=== PATIENT | female | born 1980 | race Caucasian/White ===

== ENCOUNTER 2016-05-12 08:34 | Emergency (ER) | payer BC ==
[~2016-05-12] VITALS: Ht 162.6 cm; Wt 71.0 kg
[~2016-05-12 08:34] MED LIST: NAPROSYN500 MG PO
[2016-05-12] MEDS ORDERED: PERCOCET 5/31 TABLET PO (11:28)
[2016-05-12] MEDS ORDERED: CLINDAMYCIN HC300 MG PO (11:28)
[2016-05-12 11:44] VITALS: BP 111/68
== END 2016-05-12 11:44 | disposition home or self-care (01) ==
LOC: EME 08:34
DX: L02.213 Cutaneous abscess of chest wall (principal); Z48.01 Encounter for change or removal of surgical wound dressing
CPT/HCPCS: 76604; 99281; 99284

== ENCOUNTER 2016-05-14 13:34 | Emergency (ER) | payer BC ==
[~2016-05-14] VITALS: Ht 162.6 cm; Wt 72.6 kg
[~2016-05-14 13:34] MED LIST changes: +CLINDAMYCIN HC300 MG PO; +PERCOCET 5/31 TABLET PO
[2016-05-14 13:38] VITALS: BP 104/55
== END 2016-05-14 14:00 | disposition left against medical advice (07) ==
LOC: EME 13:34
DX: Z09 Encounter for follow-up examination after completed treatment for conditions other than malignant neoplasm (principal); Z53.21 Procedure and treatment not carried out due to patient leaving prior to being seen by health care provider

== ENCOUNTER 2016-05-15 10:05 | Emergency (ER) | payer BC ==
[~2016-05-15] VITALS: Ht 162.6 cm; Wt 71.2 kg
[2016-05-15 10:18] VITALS: BP 110/65
== END 2016-05-15 11:44 | disposition home or self-care (01) ==
LOC: EME 10:05
DX: Z48.01 Encounter for change or removal of surgical wound dressing (principal); Z88.2 Allergy status to sulfonamides
CPT/HCPCS: 99281; 99283

== ENCOUNTER → 2016-12-11 | Outpatient (CLI) | payer BC | END | disposition home or self-care (01) | LOC: CDC 15:19 | DX: M25.511 Pain in right shoulder (principal); M75.41 Impingement syndrome of right shoulder; F17.200 Nicotine dependence, unspecified, uncomplicated | CPT/HCPCS: 93000 ==